=== PATIENT | male | born 1970 | race Caucasian/White ===

== ENCOUNTER 2021-04-25 22:23 | Emergency (ER) | payer BC ==
[2021-04-25] MEDS ORDERED: Boostrix 0.5 ML (Tdap) VIAL ONE (22:31)
[2021-04-25] MEDS ORDERED: Lidocaine 1% 20 ML MDV ONE (22:31)
[2021-04-25] MEDS ORDERED: Bacitracin 1 PK ONE (22:40)
== END 2021-04-25 23:05 | disposition home or self-care (01) ==
LOC: MADERS 22:23
DX: S61.210A Laceration without foreign body of right index finger without damage to nail, initial encounter (principal); Z23 Encounter for immunization; F17.220 Nicotine dependence, chewing tobacco, uncomplicated; W26.0XXA Contact with knife, initial encounter
CPT/HCPCS: 12001; 90471; 90715